=== PATIENT | male | born 1970 | race African-American/Black ===

== ENCOUNTER 2017-05-22 13:56 | Inpatient (IN) | payer OTHER ==
[~2017-05-22] VITALS: Ht 177.8 cm; Wt 93.3 kg
[~2017-05-22 13:56] MED LIST: GLUCOPHAGE1000 MG PO; HYDROCHLOROTHIA25 MG PO; TRAMADOL HCL50 MG PO
[2017-05-22 15:19] LABS: BASOPHIL (%) 0.6 % (0-1); BASOPHIL COUNT 0.1 K/uL (0-0.1); EOSINOPHIL (%) 0.8 % (0-5); EOSINOPHIL COUNT 0.1 K/uL (0-0.3); HEMATOCRIT 43.9 % (38.0-50.0); HEMOGLOBIN 14.6 G/DL (12.5-16.6); IMMATURE GRANULOCYTE (%) 0.4 % (0.0-0.7); LYMPHOCYTE (%) 21.5 % (15-42); LYMPHOCYTE COUNT 2.5 K/uL (1.0-2.8); MCH 31.5 PG (29.0-34.0); MCHC 33.3 G/DL (30.0-36.0); MCV 94.8 FL (86-99); MONOCYTE (%) 16.6 % (3-12); MONOCYTE COUNT 1.9 K/uL (0-0.8); NEUTROPHIL (%) 60.1 % (45-76); PLATELET COUNT 247 K/uL (156-360); RBC DIS.WIDTH-CV 11.9 % (11.8-14.6); RBC DIS.WIDTH-SD 41.4 % (39-53); RED BLOOD COUNT 4.63 M/uL (4.00-5.50); WHITE BLOOD COUNT 11.7 K/uL (4.1-10.2)
[2017-05-22 15:27] LABS: CHLORIDE 96 mEq/L (99-109); POTASSIUM 4.4 mEq/L (3.7-5.4); SODIUM 136 mEq/L (136-147)
[2017-05-22 15:29] LABS: GLUCOSE 178 mg/dL (70-99)
[2017-05-22 15:33] LABS: CREATININE 1.4 mg/dL (0.6-1.3); GFR ESTIMATE (CALCULATED) > 59 mL/min/ (58.99-99999)
[2017-05-22 15:34] LABS: UREA NITROGEN (BUN) 13 mg/dL (9-23)
[2017-05-22] MEDS ORDERED: VITAMIN D31000 UNI2 PO (17:45)
[2017-05-22] MEDS ORDERED: MOBIC7.5 MG PO (17:46)
[2017-05-22] MEDS ORDERED: ABILIFY5 MG PO (17:46)
[2017-05-22] MEDS ORDERED: LOW DOSE ASPIRI81 M1 PO (17:46)
[2017-05-22] MEDS ORDERED: ZOCOR10 MG PO (17:47)
[2017-05-22 21:21] LABS: TROP-I INTERPRETATION NEGATIVE; TROPONIN-I < 0.01 ng/mL (0.0-0.30)
[2017-05-22 23:17] VITALS: BP 136/86
[2017-05-23 02:07] LABS: TROP-I INTERPRETATION NEGATIVE; TROPONIN-I < 0.01 ng/mL (0.0-0.30)
[2017-05-23 02:56] VITALS: BP 130/73
[2017-05-23 05:06] LABS: HEMATOCRIT 41.6 % (38.0-50.0); HEMOGLOBIN 13.8 G/DL (12.5-16.6); MCH 31.4 PG (29.0-34.0); MCHC 33.2 G/DL (30.0-36.0); MCV 94.8 FL (86-99); PLATELET COUNT 240 K/uL (156-360); RBC DIS.WIDTH-CV 11.9 % (11.8-14.6); RBC DIS.WIDTH-SD 41.7 % (39-53); RED BLOOD COUNT 4.39 M/uL (4.00-5.50); WHITE BLOOD COUNT 10.7 K/uL (4.1-10.2)
[2017-05-23 05:13] LABS: CHLORIDE 99 mEq/L (99-109); POTASSIUM 4.1 mEq/L (3.7-5.4); SODIUM 135 mEq/L (136-147)
[2017-05-23 05:15] LABS: GLUCOSE 237 mg/dL (70-99)
[2017-05-23 05:19] LABS: CREATININE 1.3 mg/dL (0.6-1.3); GFR ESTIMATE (CALCULATED) > 59 mL/min/ (58.99-99999)
[2017-05-23 05:20] LABS: UREA NITROGEN (BUN) 12 mg/dL (9-23)
[2017-05-23 07:08] VITALS: BP 127/73
[2017-05-23 09:40] LABS: THYROTROPIN (TSH) 0.54 MIU/L (0.4-5.5)
[2017-05-23 11:28] VITALS: BP 137/76
[2017-05-23 16:24] VITALS: BP 113/71
[2017-05-23 23:26] VITALS: BP 140/87
[2017-05-24 05:36] LABS: HEMATOCRIT 43.2 % (38.0-50.0); HEMOGLOBIN 13.9 G/DL (12.5-16.6); MCHC 32.2 G/DL (30.0-36.0); MCV 96.4 FL (86-99); PLATELET COUNT 285 K/uL (156-360); RBC DIS.WIDTH-CV 11.8 % (11.8-14.6); RED BLOOD COUNT 4.48 M/uL (4.00-5.50); WHITE BLOOD COUNT 12.5 K/uL (4.1-10.2)
[2017-05-24 05:45] LABS: CHLORIDE 97 MEQ/L (99-109); CREATININE 1.3 MG/DL (0.6-1.3); GFR ESTIMATE (CALCULATED) > 59 mL/min/ (58.99-99999); GLUCOSE 149 mg/dL (70-99); POTASSIUM 4.5 MEQ/L (3.7-5.4); SODIUM 135 MEQ/L (136-147); UREA NITROGEN (BUN) 12 mg/dL (9-23)
[2017-05-24 08:02] VITALS: BP 170/98
[2017-05-24 12:09] VITALS: BP 159/94
[2017-05-24 15:36] VITALS: BP 127/79
[2017-05-24 23:43] VITALS: BP 117/68
[2017-05-25 01:02] LABS: CREATININE 1.3 mg/dL (0.6-1.3); GFR ESTIMATE (CALCULATED) > 59 mL/min/ (58.99-99999)
[2017-05-25 02:20] LABS: VANCOMYCIN, TROUGH 12.3 MCG/ML (10-20)
[2017-05-25 08:22] VITALS: BP 119/66
[2017-05-25 09:54] LABS: HEMOGLOBIN A1c (GLYCOHEMOGLOB) 7.8 % (Below 5.7)
[2017-05-25 11:59] VITALS: BP 121/71
[2017-05-25 16:04] VITALS: BP 104/63
[2017-05-25 23:14] VITALS: BP 118/66
[2017-05-26 06:20] LABS: HEMATOCRIT 42.8 % (38.0-50.0); HEMOGLOBIN 13.7 G/DL (12.5-16.6); MCH 30.2 PG (29.0-34.0); MCV 94.3 FL (86-99); PLATELET COUNT 285 K/uL (156-360); RBC DIS.WIDTH-CV 11.7 % (11.8-14.6); RBC DIS.WIDTH-SD 40.4 % (39-53); RED BLOOD COUNT 4.54 M/uL (4.00-5.50); WHITE BLOOD COUNT 9.2 K/uL (4.1-10.2)
[2017-05-26 06:41] LABS: ALBUMIN 3.1 G/DL (3.2-4.8); ALKALINE PHOSPHATASE 61 IU/L (3-129); ALT (GPT) 17 IU/L (3-49); AST (GOT) 19 IU/L (2-34); CHLORIDE 95 MEQ/L (99-109); CREATININE 1.3 MG/DL (0.6-1.3); GFR ESTIMATE (CALCULATED) > 59 mL/min/ (58.99-99999); GLUCOSE 165 mg/dL (70-99); POTASSIUM 4.3 MEQ/L (3.7-5.4); SODIUM 136 MEQ/L (136-147); TOTAL BILIRUBIN 0.3 MG/DL (0.0-1.0); TOTAL PROTEIN 7.4 G/DL (6.4-8.3); UREA NITROGEN (BUN) 12 mg/dL (9-23)
[2017-05-26 07:29] VITALS: BP 111/59
[2017-05-26 15:48] VITALS: BP 108/67
[2017-05-26 23:08] VITALS: BP 106/58
[2017-05-27 07:24] VITALS: BP 102/54
[2017-05-27 10:45] VITALS: BP 113/67
[2017-05-27 16:11] VITALS: BP 100/58
[2017-05-27 23:10] VITALS: BP 150/81
[2017-05-28 07:07] LABS: HEMATOCRIT 38.9 % (38.0-50.0); HEMOGLOBIN 12.5 G/DL (12.5-16.6); MCH 30.6 PG (29.0-34.0); MCHC 32.1 G/DL (30.0-36.0); MCV 95.3 FL (86-99); PLATELET COUNT 312 K/uL (156-360); RBC DIS.WIDTH-CV 11.8 % (11.8-14.6); RBC DIS.WIDTH-SD 41.1 % (39-53); RED BLOOD COUNT 4.08 M/uL (4.00-5.50); WHITE BLOOD COUNT 7.3 K/uL (4.1-10.2)
[2017-05-28 07:25] VITALS: BP 127/82
[2017-05-28 07:35] LABS: ALBUMIN 2.9 G/DL (3.2-4.8); ALKALINE PHOSPHATASE 50 IU/L (3-129); ALT (GPT) 14 IU/L (3-49); AST (GOT) 15 IU/L (2-34); CHLORIDE 101 MEQ/L (99-109); CREATININE 1.1 MG/DL (0.6-1.3); GFR ESTIMATE (CALCULATED) > 59 mL/min/ (58.99-99999); GLUCOSE 164 mg/dL (70-99); POTASSIUM 4.6 MEQ/L (3.7-5.4); SODIUM 138 MEQ/L (136-147); TOTAL PROTEIN 6.6 G/DL (6.4-8.3); UREA NITROGEN (BUN) 15 mg/dL (9-23)
[2017-05-28 07:36] LABS: TOTAL BILIRUBIN 0.2 MG/DL (0.0-1.0)
[2017-05-28 15:23] VITALS: BP 101/60
[2017-05-29 00:19] VITALS: BP 105/60
[2017-05-29 12:58] VITALS: BP 125/79
[2017-05-29 17:20] VITALS: BP 112/68
[2017-05-30 01:07] VITALS: BP 133/82
[2017-05-30 07:30] VITALS: BP 101/59
[2017-05-30 10:06] VITALS: BP 118/71
[2017-05-30 15:11] VITALS: BP 110/72
[2017-05-30 23:29] VITALS: BP 125/74
[2017-05-31 08:44] VITALS: BP 105/63
[2017-05-31 16:51] VITALS: BP 115/62
[2017-05-31 23:37] VITALS: BP 125/68
[2017-06-01 06:49] LABS: HEMATOCRIT 45.1 % (38.0-50.0); HEMOGLOBIN 14.3 G/DL (12.5-16.6); MCH 30.1 PG (29.0-34.0); MCHC 31.7 G/DL (30.0-36.0); MCV 94.9 FL (86-99); PLATELET COUNT 342 K/uL (156-360); RBC DIS.WIDTH-CV 11.5 % (11.8-14.6); RBC DIS.WIDTH-SD 40.7 % (39-53); RED BLOOD COUNT 4.75 M/uL (4.00-5.50); WHITE BLOOD COUNT 6.4 K/uL (4.1-10.2)
[2017-06-01 07:16] LABS: ALBUMIN 3.4 G/DL (3.2-4.8); ALKALINE PHOSPHATASE 51 IU/L (3-129); ALT (GPT) 25 IU/L (3-49); CHLORIDE 97 MEQ/L (99-109); CREATININE 1.5 MG/DL (0.6-1.3); GFR ESTIMATE (CALCULATED) > 59 mL/min/ (58.99-99999); GLUCOSE 127 mg/dL (70-99); POTASSIUM 4.8 MEQ/L (3.7-5.4); SODIUM 137 MEQ/L (136-147); TOTAL BILIRUBIN 0.2 MG/DL (0.0-1.0)
[2017-06-01 07:18] LABS: AST (GOT) 23 IU/L (2-34); TOTAL PROTEIN 7.7 G/DL (6.4-8.3); UREA NITROGEN (BUN) 26 mg/dL (9-23)
[2017-06-01] MEDS ORDERED: AUGMENTIN875 MG PO (07:48)
[2017-06-01] MEDS ORDERED: LOSARTAN POTASS50 MG PO (07:51)
[2017-06-01] MEDS ORDERED: TRAMADOL HCL50 MG PO (07:51)
[2017-06-01] MEDS ORDERED: PRAVASTATIN SOD40 MG PO (07:51)
[2017-06-01] MEDS ORDERED: HYDROCHLOROTHIA25 MG PO (07:51)
[2017-06-01] MEDS ORDERED: ASPIRIN EC325 MG PO (07:51)
[2017-06-01] MEDS ORDERED: MOTRIN600 MG PO (07:51)
[2017-06-01] MEDS ORDERED: TYLENOL REGULA325 MG PO (07:51)
[2017-06-01 08:30] VITALS: BP 106/64
== END 2017-06-01 14:44 | disposition home health service (06) | DRG 153 ==
LOC: EME 13:56 → EDOF 19:33 → 3EAST 19:33 → ENRESERV 19:45 → 3EAST 23:01
PROVIDERS: Family Medicine; Hospitalist; Internal Medicine; Physician Assistant
PROC: 0K9 Muscles, Drainage (ICD-10-PCS; principal; 2017-05-23)
PROC: 0J9500Z Drainage of Left Neck Subcutaneous Tissue and Fascia with Drainage Device, Open Approach (ICD-10-PCS; 2017-05-27)
DX: J39.0 Retropharyngeal and parapharyngeal abscess (principal); I82.C12 Acute embolism and thrombosis of left internal jugular vein; L04.0 Acute lymphadenitis of face, head and neck; E11.9 Type 2 diabetes mellitus without complications; N28.9 Disorder of kidney and ureter, unspecified; E78.5 Hyperlipidemia, unspecified; I10 Essential (primary) hypertension; K04.7 Periapical abscess without sinus; L02.11 Cutaneous abscess of neck; R07.89 Other chest pain; Z91.19 Patient's noncompliance with other medical treatment and regimen; R47.02 Dysphasia; F17.200 Nicotine dependence, unspecified, uncomplicated; M19.90 Unspecified osteoarthritis, unspecified site; E66.9 Obesity, unspecified; Z68.29 Body mass index [BMI] 29.0-29.9, adult; I08.1 Rheumatic disorders of both mitral and tricuspid valves
CPT/HCPCS: 10030; 70491; 71260; 76536; 76937; 80048; 80053; 80202; 82565; 82948; 83036; 83605; 84439; 84443; 84481; 84484; 84520; 85025; 85027; 87040; 87070; 87075; 87076; 87185; 87205; 87641; 93005; 93306; 99281; 99285; C1751; J0295; J1644; J1815; J1885; J2405; J3010; J3370; J7030; J7050